=== PATIENT | male | born 1990 | race Two or more races ===

== ENCOUNTER 2020-02-13 18:07 | Emergency (ER) | payer SELFPAY ==
[2020-02-13 18:30] VITALS: BP 146/84
[2020-02-13] MEDS ORDERED: IBUPROFEN 800 MG TABLET PO STA (18:50)
--- NOTE | 2020-02-13 18:50 | ED Physician Documentation ---
History of Present Illness - Stated complaint Stated Complaint: TOOTH PX - Chief complaint Chief Complaint: Heent - History obtained from History obtained from: Patient - History of Present Illness Timing: How many days ago (2) Pain level max: 5 Pain level now: 5 - Additonal information Additional information: 29-year-old male presents to the emergency department complaining of left lower molar pain. States this started a few days ago and has had increasing pain. Does not have a dentist. supervisor [employer] used. No fever. No chills. No vomiting or diarrhea. No facial swelling. Review of Systems Constitutional: denies: Fever, Chills GI: denies: Vomiting PD PAST MEDICAL HISTORY - Past Medical History Past Medical History: No - Past Surgical History Past Surgical History: No - Present Medications Home Medications: Ambulatory Orders Medication Instructions Recorded Confirmed HYDROcod/ACETAM 5/325 [[place] 5/325] 1 - 2 ea PO Q6H PRN #14 tablet 02/13/20 Ibuprofen [Motrin] 800 mg PO Q8H PRN #30 tablet 02/13/20 - Allergies Allergies/Adverse Reactions: Allergies Allergy/AdvReac Type Severity Reaction Status Date / Time No Known Drug Allergies Allergy Verified 02/13/20 18:55 - Living Situation Living Arrangement: reports: At home PD ED PE NORMAL - Vitals Vital signs reviewed: Yes - General General: Alert and oriented X 3, No acute distress - HEENT HEENT: Moist mucous membranes, Other (Left lower wisdom tooth appears to be erupting) - Neck Neck: Supple, no meningeal sign - Cardiac Cardiac: RRR - Respiratory Respiratory: No respiratory distress, Clear bilaterally - Derm Derm: Warm and dry Results - Vitals Vitals: Vital Signs - 24 hr 02/13/20 18:22 Temperature 36.9 C Heart Rate 64 Respiratory 20 Rate Blood Pressure 146/84 H O2 Saturation 99 Oxygen O2 Source Room air PD MEDICAL DECISION MAKING - ED course Complexity details: considered differential (no infection, no abscess.), d/w patient ED course: Patient with a wisdom tooth eruption. Recommend that he follow-up closely with a dentist and oral surgeon. We will prescribe pain medication for home. Patient counseled regarding signs and symptoms for which I believe and urgent re-evaluation would be necessary. Patient with good understanding of and agreement to plan and is comfortable going home at this time This document was made in part using voice recognition software. While efforts are made to proofread this document, sound alike and grammatical errors may occur. Departure - Departure Disposition: 01 Home, Self Care Clinical Impression: Late tooth eruption Condition: Good Instructions: ED Tooth Pain Follow-Up: ARLETTE PARHAM [Physician No Access] - Arlette Parham DDS [Provider Admit Priv/Credential] - Prescriptions: Ibuprofen [Motrin] 800 mg PO Q8H PRN #30 tablet PRN Reason: PAIN &/OR FEVER HYDROcod/ACETAM 5/325 [[place] 5/325] 1 - 2 ea PO Q6H PRN #14 tablet PRN Reason: Pain Print Language: Occitan Comments: You appear to have your wisdom tooth erupting today. You need to follow-up closely with a dentist and or oral surgeon for further care. Do not drink alcohol or drive while on narcotic pain medicine. Note that many narcotic pain relievers also contain tylenol/acetaminophen. Please ensure that your total dose of acetaminophen from all sources does not exceed 3 grams (3000mg) per day. You may constipated on this medication, take a stool softener such as "Colace" twice a day while you are on it. Also recommend a zonn-akr-zncpetg laxative such as senna or MiraLAX any day that you do not have a bowel movement. If you received narcotic pain medication in the emergency department, do not drive or operate machinery for the next 24 hours. Parece que hoy le est saliendo la muela del juicio. Debe realizar un seguimiento de cerca con un dentista o cirujano oral para recibir atencin adicional. No rae alcohol ni conduzca mientras est tomando analgsicos narcticos. Tenga en cuenta que muchos analgsicos narcticos tambin contienen tylenol / acetaminofn. Asegrese de que de jesus dosis total de acetaminofn de todas las luke no exceda los 3 gramos (3000 mg) por da. Puede estreirse con mary medicamento, tome un ablandador de heces parish "Colace" dos veces al da mientras lo est tomando. Tambin recomiende un laxante de venta sh[place] parish senna o MiraLAX cualquier da que no tenga tania evacuacin intestinal. Si recibi analgsicos narcticos en el departamento de emergencias, no conduzca ni maneje maquinaria maynor las prximas 24 horas. Discharge Date/Time: 02/13/20 18:57
== END 2020-02-13 18:57 | disposition home or self-care (01) ==
LOC: ED 18:07
DX: K00.6 Disturbances in tooth eruption (principal)
CPT/HCPCS: 99282; 99283; A9270